=== PATIENT | female | born 1995 | race Caucasian/White ===

== ENCOUNTER 2016-07-18 12:05 | Emergency (ER) | payer OTHER ==
[2016-07-18] MEDS ORDERED: LORazepam 2 MG/ML INJ IVP ONE (12:21)
--- NOTE | 2016-07-18 12:23 | CPEKG ---
Heart Rate: 77 RR Interval: 779 P-R Interval: 132 QRSD Interval: 78 QT Interval: 360 QTC Interval: 408 P [place]: 55 QRS [place]: 76 T Wave [place]: 41 EKG Severity - NORMAL ECG - EKG Impression: SINUS RHYTHM Electronically Signed By: Acosta Aguilar 18-Jul-2016 15:10:44
[2016-07-18 12:38] LABS: % IMMATURE GRANULYOCYTES 0.2 % (0.0-1.1); ABSOLUTE IMMATURE GRANULOCYTES 0.01 10^3/uL (0.00-0.10); ADD DIFF? NO; ADD MORPH? NO; ADD SCAN? NO; ATYPICAL LYMPHOCYTE FLAG 20 (0-99); FRAGMENT RBC FLAG 0 (0-99); HEMATOCRIT 38.9 % (38.0-47.0); HEMOGLOBIN 13.4 g/dL (12.6-16.3); LEFT SHIFT FLG 0 (0-99); LIPEMIA HEMOLYSIS FLAG 90 (0-99); MEAN CELL HEMOGLOBIN 29.2 pg (27.9-34.1); MEAN CELL HEMOGLOBIN CONCENTR. 34.4 g/dL (32.4-36.7); MEAN CELL VOLUME 84.7 fL (81.5-99.8); MEAN PLATELET VOLUME 11.2 fL (8.7-11.7); PLATELET CLUMPS FLAG 0 (0-99); PLATELET COUNT 226 10^3/uL (150-400); RED BLOOD CELL COUNT 4.59 10^6/uL (4.18-5.33); RED CELL DISTRIBUTION WIDTH 12.2 % (11.5-15.2)
[2016-07-18 12:55] LABS: ANION GAP 12 mEq/L (8-16); CALCIUM 9.6 mg/dL (8.5-10.4); CARBON DIOXIDE 24 mEq/l (22-31); CHLORIDE 105 mEq/L (97-110); CREATININE 0.9 mg/dL (0.6-1.0); GLOMERULAR FILTRATION RATE > 60; GLUCOSE 90 mg/dL (70-100); POTASSIUM 4.1 mEq/L (3.5-5.2); SODIUM 141 mEq/L (134-144)
[2016-07-18 13:06] LABS: TROPONIN I < 0.012 ng/mL (0-0.034)
[2016-07-18 13:35] VITALS: BP 106/64; PULSE 75; RESP 16; TEMP 98.6; O2SAT 100
[2016-07-18] MEDS ORDERED: KETOROLAC 15 MG/1 ML SDV ONE (13:37)
[2016-07-18] MEDS ORDERED: KETOROLAC 15 MG/1 ML SDV IVP ONE (13:42)
--- NOTE | 2016-07-18 13:48 | EDPHY ---
H & P Stated Complaint: l jaw/l arm aND CP FOR 1 WEEK/ ANXIOUS HPI/ROS: Chief complaint: Jaw pain History of present illness: This is a 21-year-old female who presents to the emergency department for evaluation of jaw pain. Patient reports she has has had problems with her jaw for a number of weeks. She has seen a dentist and has been treated with invisalign. The invisaline was taken off last week. Since then she feels symptoms have worsened. She states she has started to developed pain in her chest and now all along the left side of her body. She is feeling very anxious. She denies other associated signs or symptoms including no fevers, no cold symptoms, no paresthesias, no weakness or paralysis , no bowel or bladder dysfunction. Review of systems: A 10 point review of systems was obtained and other than described above was negative - Personal History LMP (Females 10-55): Irregular Current Tetanus/Diphtheria Vaccine: Yes - Medical/Surgical History Hx Asthma: No Hx Chronic Respiratory Disease: No Hx Diabetes: No Hx Cardiac Disease: No Hx Renal Disease: No Hx Cirrhosis: No Hx Alcoholism: No Hx HIV/AIDS: No Hx Splenectomy or Spleen Trauma: No Other PMH: Current pyelo, on abx. Tonsillectomy - Social History Smoking Status: Never smoked - Physical Exam Exam: General Appearance: Alert, non toxic. Eyes: Pupils equal and round no pallor or injection. ENT: Tympanic membranes, external auditory canals, external easr and surrounding soft tissue including over the mastoids are unremarkable. Nasopharynx is not injected. There is no rhinorrhea. Oropharynx is not injected. There is no edema. There is no exudate. There is no asymmetry. The uvula is midline. No elevation of the tongue. There is no hoarseness, no drooling, no trismus, no stridor. Respiratory: There are no retractions, lungs are clear to auscultation. Cardiovascular: Regular rate and rhythm. Gastrointestinal: Abdomen is soft and nontender, no masses, bowel sounds normal. Neurological: Alert and oriented x4. Cranial nerves 2-12 grossly intact. Strength and sensation intact and symmetrical. Patient ambulating without difficulty. Skin: Warm and dry, no rashes. Musculoskeletal: Tenderness around the left TMJ region. The rest the face and head are nontender. Neck is supple nontender. Chest wall intact palpation. Extremities are symmetrical, full range of motion. Psychiatric: Patient is tearful. Constitutional: Initial Vital Signs Temperature (C) 36.7 C 07/18/16 12:08 Heart Rate 88 07/18/16 12:08 Respiratory Rate 18 07/18/16 12:08 Blood Pressure 129/82 H 07/18/16 12:08 O2 Sat (%) 98 07/18/16 12:08 O2 Delivery Mode Room Air Allergies/Adverse Reactions: Penicillins Allergy (Verified 07/18/16 12:06) Home Medications: Medication Instructions Recorded Loestrin Bcp 1 tab PO DAILY 05/29/14 LORazepam [Ativan] 0.5 mg PO BID #6 tablet 07/18/16 Medical Decision Making - Diagnostics Imaging Results: Imaging Impressions Chest X-Ray 07/18/16 12:57 Impression: No acute abnormality. Imaging: I viewed and interpreted images myself ED Course/Re-evaluation: Patient is seen under the supervision of my secondary supervising physician Dr. Acosta Aguilar. Patient presents to the emergency department primarily complaining of left TMJ pain. She has had pain for some time, she has been treated by her dentist, upon having the invisaline treatment taken off last week she feels symptoms have worsened. She states pain is worsening and now radiating down to her chest and along the left side of her body. She is nontoxic. Physical exam does reveal discomfort in the left TMJ region. It is otherwise unremarkable. Her workup of associated chest pain is unremarkable. I do believe this is likely musculoskeletal. Patient will be discharged home. Home care is discussed. She is asked to follow up with ENT for recheck. Return precautions given. Patient voiced understanding and agreement with plan. Differential Diagnosis: Included but not limited to TMJ dysfunction, muscle spasms, pulmonary infections , pneumothorax, PE, cardiac dysrhythmia, electrolyte disturbances - Data Points Laboratory Results: Laboratory Results 07/18/16 12:30 07/18/16 12:30 07/18/16 07/18/16 07/18/16 12:30 12:30 12:30 WBC RBC Hgb Hct MCV MCH MCHC RDW Plt Count MPV Neut % (Auto) Lymph % (Auto) [place] % (Auto) Eos % (Auto) Baso % (Auto) Nucleat RBC Rel Count Absolute Neuts (auto) Absolute Lymphs (auto) Absolute Monos (auto) Absolute Eos (auto) Absolute Basos (auto) Absolute Nucleated RBC Immature Gran % Immature Gran # D-Dimer < 0.27 ug/mLFEU ug/mLFEU (0.00-0.50) Sodium 141 mEq/L mEq/L (134-144) Potassium 4.1 mEq/L mEq/L (3.5-5.2) Chloride 105 mEq/L mEq/L (97-110) Carbon Dioxide 24 mEq/l mEq/l (22-31) Anion Gap 12 mEq/L mEq/L (8-16) BUN 13 mg/dL mg/dL (7-23) Creatinine 0.9 mg/dL mg/dL (0.6-1.0) Estimated GFR > 60 Glucose 90 mg/dL mg/dL (70-100) Calcium 9.6 mg/dL mg/dL (8.5-10.4) Troponin I < 0.012 ng/mL ng/mL (0-0.034) Beta HCG, Qual NEGATIVE 07/18/16 12:30 WBC 5.24 10^3/uL 10^3/uL (3.80-9.50) RBC 4.59 10^6/uL 10^6/uL (4.18-5.33) Hgb 13.4 g/dL g/dL (12.6-16.3) Hct 38.9 % % (38.0-47.0) MCV 84.7 fL fL (81.5-99.8) MCH 29.2 pg pg (27.9-34.1) MCHC 34.4 g/dL g/dL (32.4-36.7) RDW 12.2 % % (11.5-15.2) Plt Count 226 10^3/uL 10^3/uL (150-400) MPV 11.2 fL fL (8.7-11.7) Neut % (Auto) 60.6 % % (39.3-74.2) Lymph % (Auto) 32.3 % % (15.0-45.0) [place] % (Auto) 6.1 % % (4.5-13.0) Eos % (Auto) 0.4 % L % (0.6-7.6) Baso % (Auto) 0.4 % % (0.3-1.7) Nucleat RBC Rel Count 0.0 % % (0.0-0.2) Absolute Neuts (auto) 3.18 10^3/uL 10^3/uL (1.70-6.50) Absolute Lymphs (auto) 1.69 10^3/uL 10^3/uL (1.00-3.00) Absolute Monos (auto) 0.32 10^3/uL 10^3/uL (0.30-0.80) Absolute Eos (auto) 0.02 10^3/uL L 10^3/uL (0.03-0.40) Absolute Basos (auto) 0.02 10^3/uL 10^3/uL (0.02-0.10) Absolute Nucleated RBC 0.00 10^3/uL 10^3/uL (0-0.01) Immature Gran % 0.2 % % (0.0-1.1) Immature Gran # 0.01 10^3/uL 10^3/uL (0.00-0.10) D-Dimer Sodium Potassium Chloride Carbon Dioxide Anion Gap BUN Creatinine Estimated GFR Glucose Calcium Troponin I Beta HCG, Qual Medications Given: Discontinued Medications Ketorolac Tromethamine (Toradol) 15 mg IVP EDNOW ONE Stop: 07/18/16 13:43 Last Admin: 07/18/16 13:42 Dose: 15 mg Lorazepam (Ativan Injection) 1 mg IVP EDNOW ONE Stop: 07/18/16 12:22 Last Admin: 07/18/16 12:46 Dose: 1 mg Departure - Departure Disposition: Home, Routine, Self-Care Clinical Impression: Jaw pain, Chest pain Condition: Good Instructions: Chest Pain (ED), Temporomandibular Disorder (ED) Additional Instructions: Follow-up with her primary care doctor for recheck Use ibuprofen [600] mg [3] times a day for the next 2-3 days for pain If symptoms worsen or new symptoms develop return to the emergency room for recheck Referrals: Santhosh Broussard DO [Primary Care Provider] - As per Instructions Lara Barreto MD [Medical Doctor] - As per Instructions Prescriptions: LORazepam [Ativan] 0.5 mg PO BID #6 tablet
== END 2016-07-18 13:55 | disposition home or self-care (01) ==
DX: R68.84 Jaw pain (principal); R07.9 Chest pain, unspecified
CPT/HCPCS: 96374; J1885; J2060

== ENCOUNTER → 2016-08-24 | Outpatient (CLI) | payer OTHER | LOC: FIMAGING 11:03 | PROVIDERS: ATTEND Family Medicine | DX: R13.10 Dysphagia, unspecified (principal); R22.1 Localized swelling, mass and lump, neck; F45.8 Other somatoform disorders ==

== ENCOUNTER → 2016-09-04 | Outpatient (CLI) | payer OTHER | PROVIDERS: ATTEND Family Medicine | DX: R13.10 Dysphagia, unspecified (principal); K21.9 Gastro-esophageal reflux disease without esophagitis; F45.8 Other somatoform disorders | CPT/HCPCS: 92611-GN ==

== ENCOUNTER → 2016-10-19 | Outpatient (CLI) | payer OTHER | LOC: FIMAGING 09:29 | PROVIDERS: ATTEND Family Medicine | DX: M26.603 Bilateral temporomandibular joint disorder, unspecified (principal) ==

== ENCOUNTER → 2016-11-17 | Outpatient (CLI) | payer OTHER | LOC: FIMAGING 08:30 | PROVIDERS: ATTEND Family Medicine | DX: M26.69 Other specified disorders of temporomandibular joint (principal) ==

== ENCOUNTER → 2017-03-03 | Outpatient (CLI) | payer OTHER | LOC: FIMAGING 09:57 | PROVIDERS: ATTEND Psychiatry & Neurology Neurology | DX: R51 Headache (principal); R20.2 Paresthesia of skin; M54.2 Cervicalgia ==

== ENCOUNTER 2017-06-21 10:56 | Emergency (ER) | payer OTHER ==
--- NOTE | 2017-06-21 11:30 | EDPHY ---
H & P Stated Complaint: UTI - Feeling Worse Time Seen by Provider: 06/21/17 11:04 HPI/ROS: CHIEF COMPLAINT: mUltiple complaints HISTORY OF PRESENT ILLNESS: 21-year-old female nonsmoker, no cocaine use, was seen by her PCP 3 days ago for complaints of feeling tired, weak, concerned she may have urinary tract infection. Urinalysis obtained at that time which was positive but was also noted to have contaminant. Patient was started on Levaquin at that time. Serum laboratory studies were obtained at that time. Patient returns to the ER stating that for the past 2 days she has been experiencing midsternal constant chest pain, nonpleuritic, no radiation as well as sleeping more than usual, feeling weak and fatigued.. No dyspnea. She is also complaining of 1 episode of emesis this morning without abdominal pain. She also complains of right flank pain. No radiculopathy. No incontinence or retention. No fever or chills. PRIMARY CARE PROVIDER:Dr. Katheryn Clayton REVIEW OF SYSTEMS: A ten point review of systems was performed and is negative with the exception of the items mentioned in the HPI PAST MEDICAL & SURGICAL HISTORY: Positive for oral contraceptive use SOCIAL HISTORY:Nonsmoker no cocaine use FAMILY HISTORY: No family history of premature coronary artery disease or coagulopathy/vasculopathy. PHYSICAL EXAM (Prior to examination, patient consented to physical exam, hands were washed and my usual and customary physical exam procedures followed) 1) GENERAL: Well-developed, well-nourished, alert and oriented. Appears to be in no acute distress. 2) HEAD: Normocephalic, atraumatic 3) HEENT: Pupils equal, round, reactive to light bilaterally. Sclera anicteric. Nasopharynx, oropharynx, clear, no lesions. Ears bilaterally with normal tympanic membranes. 4) NECK: Full range of motion, no meningeal signs. No carotid bruit 5) LUNGS: Clear auscultation bilaterally, no wheezes, no rhonchi, no retractions. 6) HEART: Regular rate and rhythm, no murmur, no heave, no gallop. 7) ABDOMEN: No guarding, no rebound, no focal tenderness, negative McBurney's, negative Reynolds's, negative Rovsing's, negative peritoneal sign, 8) MUSCULOSKELETAL: Moving all extremities, no focal areas of tenderness, no obvious trauma. No peripheral edema or discoloration. Negative Homans no palpable cord 9) BACK: No CVA tenderness, no midline vertebral tenderness, no fluctuance, no step-off, no obvious trauma, no visual or palpable abnormality. 10) SKIN: No rash, no petechiae. 11) Psychiatric: Patient is oriented X 3, there is no agitation. DIFFERENTIAL DIAGNOSIS: In no particular include but limited to pulmonary embolus, pulmonary infectious etiology, pyelonephritis. - Personal History LMP (Females 10-55): 22-28 Days Ago Current Tetanus Diphtheria and Acellular Pertussis (TDAP): Yes - Medical/Surgical History Hx Asthma: No Hx Chronic Respiratory Disease: No Hx Diabetes: No Hx Cardiac Disease: No Hx Renal Disease: No Hx Cirrhosis: No Hx Alcoholism: No Hx HIV/AIDS: No Hx Splenectomy or Spleen Trauma: No Other PMH: Current pyelo, on abx. Tonsillectomy - Social History Smoking Status: Never smoked Constitutional: Initial Vital Signs Temperature (C) 36.5 C 06/21/17 10:59 Heart Rate 86 06/21/17 10:59 Respiratory Rate 18 06/21/17 10:59 Blood Pressure 127/79 H 06/21/17 10:59 O2 Sat (%) 98 06/21/17 10:59 O2 Delivery Mode Room Air Allergies/Adverse Reactions: Penicillins Allergy (Verified 07/18/16 12:06) Home Medications: Medication Instructions Recorded Loestrin Bcp 1 tab PO DAILY 05/29/14 LORazepam [Ativan] 0.5 mg PO BID #6 tablet 07/18/16 Medical Decision Making - Diagnostics Imaging Results: Imaging Impressions Chest X-Ray 06/21/17 11:27 Impression: Clear lungs. No explanation for pain. Images reviewed myself ED Course/Re-evaluation: 11:27 a.m.: I reviewed the patient's laboratory studies obtained 3 days ago which include negative Monospot. Her urinalysis and urine culture reviewed by myself showing contaminant. Plan today number department will be EKG, chest x- ray and D-dimer, laboratory studies as he is complaining of new onset constant chest pain which I think is less than likely secondary to cardiac etiology given lack of risk factors. Discussed with patient mother and they feel comfortable with this plan. Care of patient under supervision of secondary supervising physician Dr Aguilar. 12:20 p.m. Serial evaluations performed on this patient. At this time I re- evaluated the patient. I discussed her diagnostic results showing normal chest x-ray, normal D-dimer, sinus rhythm EKG. In addition she had negative Monospot testing obtained few days ago by her PCP. Troponin not obtained as I think that cardiology is less than likely given her lack of risk factors. She is noted to have trace leukocytes on analysis is currently on Levaquin. Recommend she continue her course of Levaquin as there is significant improvement in her urinalysis verses 3 days ago. Doubt pyelonephritis. Doubt urosepsis. She also noted to have negative D-dimer which I think adequately excludes pulmonary embolus in this patient who has low to medium risk factors explained this to the mother and patient. They both feel comfortable being discharged. Usual and customary discharge precautions instructions provided. - Data Points Laboratory Results: Laboratory Results 06/21/17 11:31 06/21/17 11:31 06/21/17 06/21/17 06/21/17 11:31 11:31 11:31 WBC RBC Hgb Hct MCV MCH MCHC RDW Plt Count MPV Neut % (Auto) Lymph % (Auto) [place] % (Auto) Eos % (Auto) Baso % (Auto) Nucleat RBC Rel Count Absolute Neuts (auto) Absolute Lymphs (auto) Absolute Monos (auto) Absolute Eos (auto) Absolute Basos (auto) Absolute Nucleated RBC Immature Gran % Immature Gran # D-Dimer < 0.27 ug/mLFEU ug/mLFEU (0.00-0.50) Sodium 140 mEq/L mEq/L (135-145) Potassium 4.6 mEq/L mEq/L (3.5-5.2) Chloride 103 mEq/L mEq/L (97-110) Carbon Dioxide 25 mEq/l mEq/l (22-31) Anion Gap 12 mEq/L mEq/L (8-16) BUN 11 mg/dL mg/dL (7-23) Creatinine 1.0 mg/dL mg/dL (0.6-1.0) Estimated GFR > 60 Glucose 83 mg/dL mg/dL (70-100) Calcium 9.7 mg/dL mg/dL (8.5-10.4) TSH Pending Beta HCG, Qual NEGATIVE Urine Color Urine Appearance Urine pH Ur Specific [place] Urine Protein Urine Ketones Urine Blood Urine Nitrate Urine Bilirubin Urine Urobilinogen Ur Leukocyte Esterase Urine RBC Urine WBC Ur Epithelial Cells Urine Bacteria Urine Glucose Urine Test 06/21/17 06/21/17 06/21/17 11:31 11:31 11:31 WBC 5.81 10^3/uL 10^3/uL (3.80-9.50) RBC 4.91 10^6/uL 10^6/uL (4.18-5.33) Hgb 14.2 g/dL g/dL (12.6-16.3) Hct 41.5 % % (38.0-47.0) MCV 84.5 fL fL (81.5-99.8) MCH 28.9 pg pg (27.9-34.1) MCHC 34.2 g/dL g/dL (32.4-36.7) RDW 12.1 % % (11.5-15.2) Plt Count 215 10^3/uL 10^3/uL (150-400) MPV 11.2 fL fL (8.7-11.7) Neut % (Auto) 67.8 % % (39.3-74.2) Lymph % (Auto) 26.3 % % (15.0-45.0) [place] % (Auto) 5.0 % % (4.5-13.0) Eos % (Auto) 0.3 % L % (0.6-7.6) Baso % (Auto) 0.3 % % (0.3-1.7) Nucleat RBC Rel Count 0.0 % % (0.0-0.2) Absolute Neuts (auto) 3.93 10^3/uL 10^3/uL (1.70-6.50) Absolute Lymphs (auto) 1.53 10^3/uL 10^3/uL (1.00-3.00) Absolute Monos (auto) 0.29 10^3/uL L 10^3/uL (0.30-0.80) Absolute Eos (auto) 0.02 10^3/uL L 10^3/uL (0.03-0.40) Absolute Basos (auto) 0.02 10^3/uL 10^3/uL (0.02-0.10) Absolute Nucleated RBC 0.00 10^3/uL 10^3/uL (0-0.01) Immature Gran % 0.3 % % (0.0-1.1) Immature Gran # 0.02 10^3/uL 10^3/uL (0.00-0.10) D-Dimer Sodium Potassium Chloride Carbon Dioxide Anion Gap BUN Creatinine Estimated GFR Glucose Calcium TSH Beta HCG, Qual Urine Color LT. YELLOW Urine Appearance CLEAR Urine pH 6.0 (5.0-7.5) Ur Specific [place] <= 1.005 (1.002-1.030) Urine Protein NEGATIVE (NEGATIVE) Urine Ketones NEGATIVE (NEGATIVE) Urine Blood NEGATIVE (NEGATIVE) Urine Nitrate NEGATIVE (NEGATIVE) Urine Bilirubin NEGATIVE (NEGATIVE) Urine Urobilinogen 0.2 EU EU (0.2-1.0) Ur Leukocyte Esterase TRACE H (NEGATIVE) Urine RBC OCCASIONAL /hpf /hpf (0-3) Urine WBC NONE SEEN /hpf /hpf (0-3) Ur Epithelial Cells TRACE /lpf /lpf (NONE-1+) Urine Bacteria TRACE /hpf H /hpf (NONE SEEN) Urine Glucose NEGATIVE (NEGATIVE) Urine Test NEGATIVE Departure - Departure Disposition: Home, Routine, Self-Care Clinical Impression: Urinary tract infection Qualifiers: Urinary tract infection type: acute cystitis Hematuria presence: with hematuria Qualified Code(s): N30.01 - Acute cystitis with hematuria Condition: Good Instructions: Urinary Tract Infection in Women (ED) Additional Instructions: Return to the ER if you develop fevers, chills, nausea, vomiting or any other symptoms that concern you. Referrals: Katheryn Clayton MD [Medical Doctor] - 2-3 days, call for appt.
[2017-06-21 11:44] LABS: PLATELET COUNT 215 10^3/uL (150-400)
--- NOTE | 2017-06-21 11:48 | CPEKG ---
Heart Rate: 92 RR Interval: 652 P-R Interval: 152 QRSD Interval: 84 QT Interval: 352 QTC Interval: 436 P [place]: 62 QRS [place]: 80 T Wave [place]: 24 EKG Severity - NORMAL ECG - EKG Impression: SINUS RHYTHM Electronically Signed By: Angeles Jenkins 21-Jun-2017 22:55:02
[2017-06-21 13:04] VITALS: BP 108/81
== END 2017-06-21 13:07 | disposition home or self-care (01) ==
DX: N30.01 Acute cystitis with hematuria (principal); B96.89 Other specified bacterial agents as the cause of diseases classified elsewhere